=== PATIENT | male | born 1940 ===

== ENCOUNTER 2020-12-13 22:09 | Emergency (ER) | payer MEDICARE, BC ==
--- NOTE | 2020-12-13 22:14 | EDM.PDOC ---
ED HPI GENERAL MEDICAL PROBLEM - General Chief Complaint: General Stated Complaint: ALLERGIC RX Time Seen by Provider: 12/13/20 22:09 Source of Information: Reports: Patient History Limitations: Reports: No Limitations - History of Present Illness INITIAL COMMENTS - FREE TEXT/NARRATIVE: This patient is a 80 year old male that presents to the ER. Patient reports he was at the [employer] and ordered an pasta with shrimp. 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 Patient reports that he was eating and after a couple of bites, he got a sensation of swelling or something stuck in his throat. He reports he felt like he was having an allergic reaction. Patient reports that he has an epi pen, but its at home in [place]. Patient reports that he came straight to the ER. No meds were taken. Patient reports that upon arrival he has some mucous production and runny nose. He reports the something in throat sensation feels a little better, but still there. Patient denies headache, dizziness, n, v, d, f, chest pain, shortness of breath, acid reflux sensation, abd pain. He denies a piece of the shrimp or pasta being lodged. Onset: Today Onset Date: 12/13/20 Duration: Minutes: (45), Improving Location: Reports: Other (throat) Quality: Reports: Other (something stuck) Severity: Moderate Improves with: Reports: None Worsens with: Reports: None Associated Symptoms: Reports: Diaphoresis. Denies: Confusion, Chest Pain, Cough, cough w sputum, Fever/Chills, Headaches, Loss of Appetite, Malaise, Nausea/Vomiting, Rash, Seizure, Shortness of Breath, Syncope, Weakness - Related Data Allergies Allergy/AdvReac Type Severity Reaction Status Date / Time No Known Allergies Allergy Verified 12/13/20 22:10 Home Meds: Home Meds Metoprolol Succinate [Toprol Xl] 50 mg PO DAILY 12/13/20 [History] Rosuvastatin [Crestor] 5 mg PO DAILY 12/13/20 [History] Valsartan/Hydrochlorothiazide [Diovan Hct 160-12.5 mg Tab] 1 each PO DAILY 12/13/20 [History] ED ROS GENERAL - Review of Systems Review Of Systems: See Below Constitutional: Reports: No Symptoms HEENT: Reports: Rhinitis, Throat Swelling (sensation of something in throat), Other (increased mucous production) Respiratory: Reports: Cough. Denies: Shortness of Breath, Wheezing, Pleuritic Chest Pain Cardiovascular: Reports: No Symptoms. Denies: Chest Pain, Dyspnea on Exertion, Lightheadedness, Palpitations, Syncope Endocrine: Reports: No Symptoms GI/Abdominal: Reports: No Symptoms. Denies: Abdominal Pain, Diarrhea, Nausea, Vomiting : Reports: No Symptoms Musculoskeletal: Reports: No Symptoms Skin: Reports: Diaphoresis. Denies: Rash Neurological: Reports: No Symptoms Psychiatric: Reports: No Symptoms Hematologic/Lymphatic: Reports: No Symptoms Immunologic: Reports: Food Allergy ED EXAM, GENERAL - Physical Exam Exam: See Below Exam Limited By: No Limitations General Appearance: Alert, WD/WN, No Apparent Distress Eye Exam: Bilateral Eye: Normal Inspection, PERRL Ears: Normal External Exam (hearing aids intact) Ear Exam: Bilateral Ear: Auricle Normal Nose: Normal Mucosa, No Blood, Clear Rhinorrhea Throat/Mouth: Normal Inspection, Normal Lips, Normal Teeth, Normal Gums, Normal Oropharynx, Normal Voice, No Airway Compromise Head: Atraumatic, Normocephalic Neck: Normal Inspection, Supple, Non-Tender, Full Range of Motion Respiratory/Chest: No Respiratory Distress, Lungs Clear, Normal Breath Sounds, No Accessory Muscle Use Cardiovascular: Normal Peripheral Pulses, Regular Rate, Rhythm, No Edema, No Gallop, No JVD, No Murmur, No Rub Peripheral Pulses: 2+: Radial (L), Radial (R) GI/Abdominal: Soft, Non-Tender (Male) Exam: Deferred Rectal (Males) Exam: Deferred Back Exam: Normal Inspection Extremities: Normal Inspection, No Pedal Edema, Normal Capillary Refill Neurological: Alert, Oriented, Normal Cognition, Normal Gait, No Motor/Sensory Deficits Psychiatric: Normal Affect, Normal Mood Skin Exam: Warm, Normal Color, No Rash, Diaphoretic Course - Orders/Labs/Meds Meds: Medications Discontinued Medications Generic Name Dose Route Start Last Admin Trade Name Anupq PRN Reason Stop Dose Admin Diphenhydramine HCl 25 mg 12/13/20 22:12 Diphenhydramine 50 Mg/Ml Sdv IVPUSH 12/13/20 22:13 ONETIME ONE Famotidine 20 mg 12/13/20 22:18 Famotidine 20 Mg/2 Ml Sdv IVPUSH 12/13/20 22:19 ONETIME ONE Methylprednisolone Sodium Succinate 125 mg 12/13/20 22:18 Methylprednisolone Sodium Succinate 125 Mg/2 Ml Sdv IVPUSH 12/13/20 22:19 NOW STA - Re-Assessments/Exams Free Text/Narrative Re-Assessment/Exam: 12/13/20 22:56 Patient reports he is feeling much better, and he would like to go home. I will discharge home. Departure - Departure Time of Disposition: 22:56 Disposition: Home, Self-Care 01 Condition: Good Clinical Impression: Allergic reaction Qualifiers: Encounter type: initial encounter Qualified Code(s): T78.40XA - Allergy, unspecified, initial encounter - Discharge Information *PRESCRIPTION DRUG MONITORING PROGRAM REVIEWED*: Not Applicable *COPY OF PRESCRIPTION DRUG MONITORING REPORT IN PATIENT ERMIAS: Not Applicable Instructions: Seafood Allergy, Food Allergy, Allergies, Adult, [id number] Forms: ED Department Discharge Additional Instructions: Followup with your primary care provider Return to the ER for worsening of condition or any emergent concerns If occurs again, try taking Benadryl at home, if continues or worsens please return to the ER Please return to the ER for shortness of breath, chest tightness, airway closing, or other concerns Avoid same meal you had this evening - Assessment/Plan Plan: PLEASE SEE RN NOTE FOR PFSH
[2020-12-13] MEDS: methylPREDNISolone Sodium Succinate 125 MG/2 ML SDV IVPUSH STA (22:30)
[2020-12-13] MEDS: diphenhydrAMINE 50 MG/ML SDV IVPUSH ONE (22:30)
[2020-12-13] MEDS: Famotidine 20 MG/2 ML SDV IVPUSH ONE (22:35)
== END 2020-12-13 23:05 | disposition home or self-care (01) ==
LOC: CC.ED 22:09
DX: T78.1XXA Other adverse food reactions, not elsewhere classified, initial encounter (principal); Z79.899 Other long term (current) drug therapy
CPT/HCPCS: 96374; 96375; 99283; 99283-25; J1200; J2930; J3490